=== PATIENT | male | born 1980 | race Two or more races ===

== ENCOUNTER → 2023-10-16 | Emergency (ER) | payer OTHER ==
[~2023-10-16] VITALS: Ht 182.9 cm; Wt 104.3 kg
[~2023-10-16] MED LIST: CLARITIN-D 241 EACH PO
== END | disposition home or self-care (01) ==
LOC: ER 00:18
DX: Z53.21 Procedure and treatment not carried out due to patient leaving prior to being seen by health care provider (principal)